=== PATIENT | female | born 1980 | race Caucasian/White ===

== ENCOUNTER 2024-06-25 11:37 | Emergency (ER) | payer MEDICAID ==
[~2024-06-25] VITALS: Ht 157.5 cm; Wt 57.9 kg
[2024-06-25 11:50] VITALS: BP 101/71; PULSE 72; RESP 18; TEMP 98.3; O2SAT 100
[2024-06-25 12:34] LABS: CLARITY URINE CLEAR (CLEAR); COLOR URINE YELLOW (YELLOW); GLUCOSE URINE NEGATIVE (NEGATIVE); KETONES URINE NEGATIVE (NEGATIVE); LEUKOCYTE ESTERASE URINE NEGATIVE (NEGATIVE); NITRITE URINE NEGATIVE (NEGATIVE); OCCULT BLOOD URINE NEGATIVE (NEGATIVE); PROTEIN URINE NEGATIVE (NEGATIVE)
[2024-06-25 12:56] LABS: BASOPHILS % 0.5 % (0.0-2.0); EOSINOPHILS % 1.8 % (0.0-5.0); HEMATOCRIT. 36.7 % (36.0-48.0); HEMOGLOBIN. 12.4 g/dL (12.0-16.0); LYMPHOCYTES % 35.2 % (20.0-50.0); MEAN CORPUSCULAR HEMOGLOBIN 31.8 pg (28.0-32.0); MEAN CORPUSCULAR HGB CONC 33.9 g/dL (31.0-37.0); MEAN CORPUSCULAR VOLUME 93.8 fL (81.0-99.0); MEAN PLATELET VOLUME 8.1 fl (7.4-10.4); MONOCYTES % 7.8 % (2.0-8.0); NEUTROPHILS % 54.7 % (40.0-76.0); PLATELET 214 x1000/uL (130-400); RED BLOOD CELL COUNT 3.91 mill/uL (4.2-5.4); RED CELL DISTRIBUTION WIDTH 13.7 % (11.6-14.6); WHITE BLOOD COUNT 5.1 x1000/uL (4.5-11.0)
[2024-06-25 13:58] LABS: CHLORIDE 102 mEq/L (98-107); POTASSIUM 3.8 mEq/L (3.5-5.1); SODIUM 138 mEq/L (136-145)
[2024-06-25 13:59] LABS: CARBON DIOXIDE 31 mEq/L (21-32)
[2024-06-25 14:00] LABS: CALCIUM 8.9 mg/dL (8.7-10.4)
[2024-06-25 14:04] LABS: CREATININE 0.7 mg/dL (0.6-1.0); GLUCOSE 76 mg/dL (70-105); UREA NITROGEN BLOOD 9 mg/dL (9-23)
[2024-06-25] MEDS: KETOROLAC 30MG/ML VIAL IM ONE (19:07)
[2024-06-25 19:18] LABS: ALANINE AMINOTRANSFERASE 134 IU/L (10-49); ALBUMIN 3.5 g/dL (3.2-4.8); ASPARTATE AMINOTRANSFERASE 81 IU/L (<34); BILIRUBIN DIRECT 0.1 mg/dL (<=3.0); BILIRUBIN TOTAL 0.4 mg/dL (0.1-1.0); PROTEIN TOTAL 5.5 g/dL (6.0-8.3)
[2024-06-25] MEDS: HYDROCODONE/ACETAMINOPHEN 5/325MG TABLET PO ONE (20:30)
== END 2024-06-25 23:54 | disposition home or self-care (01) ==
LOC: ER 11:37
DX: N93.9 Abnormal uterine and vaginal bleeding, unspecified (principal); I10 Essential (primary) hypertension; R10.2 Pelvic and perineal pain; Z90.710 Acquired absence of both cervix and uterus; Z90.49 Acquired absence of other specified parts of digestive tract
CPT/HCPCS: 80076; 80048; 81003; 84702; 85025; 36415; 74176; 76830; 76856; 96372; 99285; J1885; Z7610